=== PATIENT | female | born 1995 | race African-American/Black ===

== ENCOUNTER 2016-04-20 15:28 | Emergency (ER) | payer MEDICAID ==
[~2016-04-20] VITALS: Ht 165.1 cm; Wt 53.0 kg
[~2016-04-20 15:28] MED LIST: DEPO400I IM
[2016-04-20 15:31] VITALS: BP 141/67; PULSE 109; RESP 15; TEMP 98.2; O2SAT 95
[2016-04-20 16:27] LABS: BACTERIA, URINE OCC /hpf; BLOOD, URINE NEG (NEG); COMMENT (UR) CULT NOT INDICATED; CULTURE IF INDICATED CULT NOT INDICATED; GLUCOSE,URINE NEG (NEG); KETONE, URINE NEG (NEG); MUCUS URINE FEW /lpf (OCC); NITRITE,URINE NEG (NEG); PH, URINE 6.5 (5.0-8.5); SQUAMOUS EPITHELIAL CELL URINE 5 /hpf (0-5); URINE COLOR LIGHT-YELLOW (YELLW/STRAW)
[2016-04-20 16:31] VITALS: BP 113/66; PULSE 87; RESP 20; TEMP 97.6; O2SAT 100
--- NOTE | 2016-04-20 16:40 | PD ---
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 Per patient she's had this for 3-4 days. She denies . She states that she has a sensation of fullness in her pelvic region. She states having minimal pain 2 out of 10. Per patient she has no fevers chills or sweats. She does have intercourse with her significant other but denies STD exposure. She denies any bleeding. She denies any chest pain or shortness of breath. No urinary issues. No bowel movement issues. Has not seen anybody for this. PFSH Past Medical History Asthma: Yes Medical other: Yes (hx mrsa) Tetanus Vaccination: < 5 Years Influenza Vaccination: Yes ?: Not LMP: 03/25/2016 : 0 Social History Alcohol Use: Yes (Social) Tobacco Use: No Substance Use: No Allergies-Medications (Allergen,Severity, Reaction): Coded Allergies: No Known Allergies (Unverified , 04/20/16) Reported Meds & Prescriptions Reported Meds & Active Scripts Active Reported Depo-Provera (Medroxyprogesterone Acetate) 400 Mg/Ml Inj Unknown Dose IM ONCE Review of Systems Except as stated in HPI: all other systems reviewed are Neg Physical Exam Narrative GENERAL: SKIN: Warm and dry. HEAD: Atraumatic. Normocephalic. EYES: Pupils equal and round. No scleral icterus. No injection or drainage. ENT: No nasal bleeding or discharge. Mucous membranes pink and moist. NECK: Trachea midline. No JVD. CARDIOVASCULAR: Regular rate and rhythm. RESPIRATORY: No accessory muscle use. Clear to auscultation. Breath sounds equal bilaterally. GASTROINTESTINAL: Abdomen soft, non-tender, nondistended. Hepatic and splenic margins not palpable. Vaginal exam: Done with female nurse present. Labia and skin of the groin area appears to be intact. No sign of lymphadenopathy. Sign of abscess or deformity. Vaginal exam revealed irritation of the vaginal wall with whitish/yellowish discharge that appears to be sludgy. No cervical tenderness. No adnexal tenderness. No masses noted. MUSCULOSKELETAL: Extremities without clubbing, cyanosis, or edema. No obvious deformities. NEUROLOGICAL: Awake and alert. No obvious cranial nerve deficits. Motor grossly within normal limits. Five out of 5 muscle strength in the arms and legs. Normal speech. PSYCHIATRIC: Appropriate mood and affect; insight and judgment normal. Data Data Last Documented VS Vital Signs Date Time Temp Pulse Resp B/P Pulse Ox O2 Delivery O2 Flow Rate FiO2 04/20/16 16:31 97.6 87 20 113/66 100 Room Air Orders Urinalysis - C+S If Indicated (04/20/16 15:35) Ed Urine Pregnancytest Poc (04/20/16 15:35) Gc And Chlamydia Pcr (04/20/16 15:59) Wet Prep Profile (04/20/16 15:59) Azithromycin Powd Pack (Zithromax Powd P (04/20/16 17:00) Ceftriaxone Inj (Rocephin Inj) (04/20/16 17:00) Lidocaine 1% Inj (50 Ml) (Xylocaine 1% I (04/20/16 17:00) Labs Laboratory Tests Test 04/20/16 04/20/16 15:29 16:00 Urine Color LIGHT-YELLOW Urine Turbidity CLEAR Urine pH 6.5 Urine Specific [place] 1.011 Urine Protein NEG mg/dL Urine Glucose (UA) NEG mg/dL Urine Ketones NEG mg/dL Urine Occult Blood NEG Urine Nitrite NEG Urine Bilirubin NEG Urine Urobilinogen LESS THAN 2.0 MG/DL Urine Leukocyte Esterase MOD Urine WBC 1 /hpf Urine Squamous Epithelial 5 /hpf Cells Urine Bacteria OCC /hpf Urine Mucus FEW /lpf Microscopic Urinalysis Comment CULT NOT INDICATED Clue Cells (Wet Prep) NONE SEEN Vaginal Trichomonas (Wet Prep) NONE SEEN Vaginal Yeast (Wet Prep) NONE SEEN MDM Medical Decision Making Medical Screen Exam Complete: Yes Emergency Medical Condition: Yes Medical Record Reviewed: Yes Interpretation(s) UA negative wet prep negative Differential Diagnosis Vaginitis versus STD versus bacterial vaginosis versus candidiasis Narrative Course 20-year-old female that presents to the ED for evaluation of vaginal infection. Patient was properly examined and was found to have signs and symptoms consistent with vaginitis. Likely at this time. I recommend pelvic exam. Patient agrees to this. test negative. Wet prep and urine showed some bacteria on urine but that was negative. Patient does have discharge and I do recommend treatment for possible chlamydia or gonorrhea. Patient is agreeable with this. Patient was given shot of Rocephin as well as azithromycin. Told to avoid sex for 2 weeks. [employer] protection. Follow with the health department. See ED for any worsening symptoms. Diagnosis Primary Impression: Vaginal discharge Patient Instructions: General Instructions Additional Instructions: Follow with the health Department. No sex for 2 weeks. See ED for any worsening symptoms. Always use protection. Med/Other Pt SpecificInfo: Prescription(s) given Disposition: 01 DISCHARGE HOME Condition: Stable Antonio Babcock Apr 20, 2016 16:40
[2016-04-20] MEDS ORDERED: LIDOCAINE HCL 1% 50 ML VIAL IM ONE (17:00)
[2016-04-20] MEDS ORDERED: AZITHROMYCIN PWD FOR SUSP 1 GM PACKET PO ONE (17:00)
[2016-04-20] MEDS ORDERED: cefTRIAXone 250 MG VIAL IM ONE (17:00)
[2016-04-20 18:11] VITALS: BP 121/67; PULSE 82; O2SAT 100
[2016-04-20 18:12] VITALS: BP 121/67
[2016-04-20 19:24] LABS: CHLAMYDIA PCR DETECTED (NOT DETECT); NEISSERIA PCR NOT DETECTED (NOT DETECT)
== END 2016-04-20 18:15 | disposition home or self-care (01) ==
LOC: NEPC 15:28
DX: N89.8 Other specified noninflammatory disorders of vagina (principal); Z87.09 Personal history of other diseases of the respiratory system; Z86.14 Personal history of Methicillin resistant Staphylococcus aureus infection
CPT/HCPCS: 81001; 84703; 87210; 87491; 87591; 96372; 99283; J0696

== ENCOUNTER 2016-11-14 17:55 | Emergency (ER) | payer MEDICAID ==
[~2016-11-14] VITALS: Ht 167.6 cm; Wt 68.0 kg
[2016-11-14 17:57] VITALS: BP 118/90; PULSE 65; RESP 20; TEMP 98.9; O2SAT 99
== END 2016-11-14 20:20 | disposition left against medical advice (07) ==
LOC: NED 17:55
DX: M54.9 Dorsalgia, unspecified (principal)
CPT/HCPCS: 99281